=== PATIENT | male | born 2000 | race Caucasian/White ===

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

== ENCOUNTER 2020-11-28 01:05 | Emergency (ER) | payer BC, OTHER ==
[~2020-11-28] VITALS: Ht 170.2 cm; Wt 68.9 kg
[2020-11-28 01:17] VITALS: BP 126/63; Ht 170.2 cm; Wt 68.9 kg
== END 2020-11-28 02:02 | disposition home or self-care (01) ==
LOC: ED 01:05
DX: K08.89 Other specified disorders of teeth and supporting structures (principal); K13.0 Diseases of lips